=== PATIENT | male | born 1970 | race Caucasian/White ===

== ENCOUNTER 2019-11-01 10:16 | Emergency (ER) | payer OTHER ==
[2019-11-01 11:15] LABS: Albumin 4.5 g/dL (3.5-5.0)
[2019-11-01 11:16] LABS: Chloride 109 mmol/L (98-107); Sodium 141 mmol/L (136-145)
[2019-11-01 11:18] LABS: Glucose 87 mg/dL (70-105); Protein, Total 8.5 g/dL (6.0-8.3)
[2019-11-01 11:19] LABS: Anion Gap 16 mmol/L (10-20); Carbon Dioxide 20 mmol/L (22-29)
[2019-11-01 11:20] LABS: Bilirubin, Total 0.6 mg/dL (0.2-1.2)
[2019-11-01 11:21] LABS: Alkaline Phosphatase 66 U/L (40-110); Calc. Creatinine Clearance 0 mL/min (70-130); Estimated GFR-MDRD 76
[2019-11-01 11:22] LABS: BUN (Urea Nitrogen) 14 mg/dL (8.9-20.6)
[2019-11-01 11:23] LABS: AST (SGOT) 25 U/L (5-34)
[2019-11-01] MEDS ORDERED: Morphine 4 MG/ML VIAL ONE (11:23)
[2019-11-01] MEDS ORDERED: Ondansetron PF 4 MG/2 ML Vial ONE (11:23)
[2019-11-01 11:24] LABS: ALT (SGPT) 14 U/L (8-55)
[2019-11-01 11:32] LABS: #Eosinphils 0.1 thou/uL (0.0-0.7); #Lymphocytes 2.1 thou/uL (1.20-3.40); #Monocytes 0.9 thou/uL (0.11-0.59); #Neutrophils 7.7 thou/uL (1.40-6.50); %Basophils 0.4 % (0.0-1.0); %Eosinophils 0.6 % (0.0-10.0); %Lymphocytes 19.5 % (21.0-51.0); %Monocytes 8.6 % (0.0-10.0); %Neutrophils 70.9 % (42.0-75.0); Hemoglobin 16.4 g/dL (14.0-18.0); Mean Corpuscular HGB CONC 34.8 g/dL (32.0-36.0); Mean Corpuscular Hemoglobin 33.5 pg (27.0-31.0); Mean Corpuscular Volume 96.5 fL (78.0-98.0); Mean Platelet Volume 7.8 fL (7.4-10.4); Platelet Count 146 thou/uL (130-400); Red Blood Cell (RBC) Count 4.89 mill/uL (4.70-6.10); White Blood Cell (WBC) Count 10.9 thou/uL (4.8-10.8)
--- NOTE | 2019-11-01 11:38 | RAD ---
CHEST 1 VIEW: Date: 11/01/2019 INDICATION: History of flank pain. COMPARISON: None. FINDINGS: Lungs are clear. Heart size is normal. No acute osseous abnormality is evident. IMPRESSION: No acute cardiopulmonary abnormality. POS: BH
[2019-11-01] MEDS ORDERED: HYDROmorphone 0.5 MG/0.5 ML SYRINGE ONE (12:46)
--- NOTE | 2019-11-01 13:52 | CT ---
CT ABDOMEN AND PELVIS WITHOUT IV CONTRAST: Date: 11/01/2019 INDICATION: 49-year-old male with left-sided flank pain. FINDINGS: Lung bases are clear. The unopacified liver is unremarkable appearing. There is a small gallstone within the gallbladder. The unopacified pancreas, adrenal glands, and spleen appear within normal limits. No definite renal or ureteral calculus is evident. No hydronephrosis is demonstrated. No enlarged lymph nodes or free fluid is seen within the retroperitoneum. There is nonvisualization of the appendix. No free fluid is evident. The bladder is moderately distended. There are numerous phleboliths within the lower pelvis. The rect um and perirectal soft tissues are unremarkable appearing. There is a mild amount of retained stool seen within the colon. The small bowel is of normal caliber. There is scattered degenerative and osteoarthritic change. IMPRESSION: 1. No renal or ureteral calculus. 2. Mild amount of retained stool within the colon. 3. Cholelithiasis. 4. Moderate distention of the bladder. POS: BH
[2019-11-01] MEDS ORDERED: Ketorolac Tromethamine 30 MG/ML VIAL ONE (14:58)
[2019-11-02 11:10] LABS: SARS-CoV-2 MS2 Positive; SARS-CoV-2 N Gene Negative; SARS-CoV-2 S Gene Negative; SARS-CoV-2 orf1ab Negative
== END 2019-11-01 18:08 | disposition home or self-care (01) ==
LOC: ERS 10:16
DX: K59.00 Constipation, unspecified (principal); I10 Essential (primary) hypertension; R33.9 Retention of urine, unspecified; Z20.828 Contact with and (suspected) exposure to other viral communicable diseases; F31.9 Bipolar disorder, unspecified; Z87.891 Personal history of nicotine dependence; Z79.899 Other long term (current) drug therapy
CPT/HCPCS: 36415; 51702; 71045; 74176; 80053; 83605; 84484; 85025; 87635; 94760; 96361; 96374; 96375; J1170; J1885; J2270; J2405; U0003

== ENCOUNTER 2020-03-25 16:30 | Emergency (ER) | payer OTHER ==
[2020-03-25] MEDS ORDERED: Diazepam 10 MG/2 ML SYRINGE ONE (16:56)
[2020-03-25] MEDS ORDERED: Acetaminophen 500 MG TAB ONE (16:57)
[2020-03-25] MEDS ORDERED: Ketorolac Tromethamine 30 MG/ML VIAL ONE (16:57)
[2020-03-25] MEDS ORDERED: Morphine 10 MG/ML VIAL ONE (18:20)
== END 2020-03-25 19:15 | disposition home or self-care (01) ==
LOC: ERS 16:30
DX: M54.5 Low back pain (principal); E03.9 Hypothyroidism, unspecified; Z87.891 Personal history of nicotine dependence; Z79.899 Other long term (current) drug therapy
CPT/HCPCS: 96372; 99283; J1885; J2270; J3360

== ENCOUNTER 2020-10-15 09:10 | Emergency (ER) | payer OTHER ==
[2020-10-15] MEDS ORDERED: diphenhydrAMINE 50 MG/ML VIAL ONE (09:38)
[2020-10-15] MEDS ORDERED: Fentanyl 100 MCG/2 ML VIAL ONE (09:38)
[2020-10-15 09:49] LABS: #Basophils 0.1 thou/uL (0.0-0.2); #Eosinphils 0.1 thou/uL (0.0-0.7); #Lymphocytes 2.7 thou/uL (1.20-3.40); #Monocytes 1.3 thou/uL (0.11-0.59); #Neutrophils 6.2 thou/uL (1.40-6.50); %Basophils 0.5 % (0.0-1.0); %Eosinophils 0.6 % (0.0-10.0); %Lymphocytes 25.9 % (21.0-51.0); %Monocytes 12.9 % (0.0-10.0); %Neutrophils 60.1 % (42.0-75.0); Hemoglobin 14.9 g/dL (14.0-18.0); Mean Corpuscular HGB CONC 35.4 g/dL (32.0-36.0); Mean Corpuscular Hemoglobin 33.4 pg (27.0-31.0); Mean Corpuscular Volume 94.3 fL (78.0-98.0); Mean Platelet Volume 6.9 fL (7.4-10.4); Platelet Count 199 thou/uL (130-400); RBC Distribution Width 11.5 % (11.5-14.5); Red Blood Cell (RBC) Count 4.47 mill/uL (4.70-6.10); White Blood Cell (WBC) Count 10.3 thou/uL (4.8-10.8)
[2020-10-15 10:11] LABS: ALT (SGPT) 20 U/L (8-55); AST (SGOT) 24 U/L (5-34); Albumin 4.3 g/dL (3.5-5.0); Alkaline Phosphatase 69 U/L (40-110); Anion Gap 18 mmol/L (10-20); BUN (Urea Nitrogen) 16 mg/dL (8.9-20.6); Bilirubin, Total 1.1 mg/dL (0.2-1.2); Calc. Creatinine Clearance 0 mL/min (70-130); Calcium 9.6 mg/dL (7.8-10.44); Carbon Dioxide 21 mmol/L (22-29); Chloride 105 mmol/L (98-107); Glucose 87 mg/dL (70-105); Potassium 3.9 mmol/L (3.5-5.1); Protein, Total 7.3 g/dL (6.0-8.3); Sodium 140 mmol/L (136-145)
[2020-10-15] MEDS ORDERED: Ketorolac Tromethamine 30 MG/ML VIAL ONE (11:04)
[2020-10-15] MEDS ORDERED: Acetaminophen 500 MG TAB ONE (13:08)
== END 2020-10-15 13:20 ==
LOC: ERS 09:10 → EEVIPCON 09:10 → ERS 13:20
DX: R55 Syncope and collapse (principal); M54.2 Cervicalgia; S69.81XA Other specified injuries of right wrist, hand and finger(s), initial encounter; M18.11 Unilateral primary osteoarthritis of first carpometacarpal joint, right hand; E03.9 Hypothyroidism, unspecified; Z87.891 Personal history of nicotine dependence; Z79.899 Other long term (current) drug therapy; S01.81XD Laceration without foreign body of other part of head, subsequent encounter; B19.20 Unspecified viral hepatitis C without hepatic coma; W06.XXXA Fall from bed, initial encounter
CPT/HCPCS: 36415; 70450; 71045; 72125; 80053; 84484; 85025; 85379; 93005; 96374; 96375; J1200; J1885; J3010